=== PATIENT | female | born 1990 | race Caucasian/White ===

== ENCOUNTER 2020-04-21 14:42 | Emergency (ER) | payer MEDICAID ==
[2020-04-21] MEDS: Sodium Chloride 0.9% 1,000 ML IV ONE (14:56)
[2020-04-21 15:49] LABS: ANION GAP 9.6 mmol/L (10-20); CHLORIDE,CL 104 mmol/L (98-107); SODIUM,NA 138 mmol/L (136-145)
[2020-04-21] MEDS: Ibuprofen 200 MG Tab PO SCH (15:52)
--- NOTE | 2020-04-21 15:53 | CT ---
[id number] CT/CT Head WO IV EXAM: CT Head WO IV CLINICAL DATA: SEIZURE. COMPARISON STUDY: None FINDINGS: Postsurgical changes following left frontal craniotomy. There is an area of encephalomalacia within the left frontal lobe. No intracranial hemorrhage, extra-axial fluid collection, mass, or acute ischemia. Soft tissues are unremarkable. Mild paranasal sinus disease. No evidence of aggressive sinusitis. The mastoid air cells are well aerated and clear. IMPRESSION: No acute intracranial findings. Delfin Mathews DO 04/21/20 1552 Thank you for allowing us to participate in the care of your patient.
[2020-04-21] MEDS: levETIRAcetam 500 MG in Sodium Chloride 0.9% 100 ML IV ONE (15:59)
[2020-04-21] MEDS: levETIRAcetam 1,000 MG in Sodium Chloride 0.9% 100 ML IV ONE (16:21)
[2020-04-21 16:33] LABS: BARBITURATE SCREEN,URINE NEGATIVE (NEGATIVE); BENZODIAZEPINES SCREEN,URINE NEGATIVE (NEGATIVE); EDDP,URINE SCREEN NEGATIVE (NEGATIVE); METHAMPHETAMINE SCREEN, URINE POSITIVE (NEGATIVE); TCA SCREEN,URINE NEGATIVE (NEGATIVE); THC SCREEN,URINE 50 NG/ML NEGATIVE (NEGATIVE)
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
== END 2020-04-21 17:06 | disposition home or self-care (01) ==
LOC: VM.ED 14:42 → SUPCPDRO 14:42 → VM.ED 17:06
DX: R56.9 Unspecified convulsions (principal); F15.10 Other stimulant abuse, uncomplicated
CPT/HCPCS: 36415; 70450; 80053; 80305-QW; 80307; 81001; 82550; 83735; 84443; 84484; 85025; 85610; 86140; 93005; 93010; 96365; 96366; 99284; 99285-25; A9270-GY; J1953; J7030; J7050